=== PATIENT | female | born 1970 | race Caucasian/White ===

== ENCOUNTER 2021-03-16 18:10 | Emergency (ER) | payer OTHER ==
[2021-03-16 18:23] VITALS: BP 102/65; PULSE 75; TEMP 98.4; BMI 20.3
[2021-03-16] MEDS ORDERED: ACETAMINOPHEN 500 MG TABLET (FP) PO ONE (18:31)
[2021-03-16] MEDS ORDERED: ACETAMINOPHEN 500 MG TABLET (FP) ONE (18:45)
== END 2021-03-16 19:26 | disposition home or self-care (01) ==
LOC: FER 18:10
DX: M25.532 Pain in left wrist (principal)
CPT/HCPCS: 73110-TC-LT-FY; 73130-TC-LT-FY; 99283-25